=== PATIENT | male | born 1950 | race Hispanic/Latino ===

== ENCOUNTER 2017-12-18 10:23 | Observation (INO) | payer MEDICARE ==
[2017-12-17 11:52] LABS: BASOPHILS # (AUTO) 0.1 (0.0-0.1); EOSINOPHILS # (AUTO) 0.4 (0.0-0.4); EOSINOPHILS % 6.1 % (0.0-6.0); HEMATOCRIT 36.9 % (38.2-49.6); HEMOGLOBIN 12.3 g/dL (14.0-18.0); LYMPHOCYTES # (AUTO) 1.9 (1.0-3.2); LYMPHOCYTES % 26.2 % (18.0-39.1); MEAN CORPUSCULAR HEMOGLOBIN 28.5 pg (28-32); MEAN CORPUSCULAR HGB CONC 33.3 g/dL (31-35); MEAN CORPUSCULAR VOLUME 85.6 fL (81-99); MONOCYTES # (AUTO) 0.8 (0.2-0.8); MONOCYTES % 11.1 % (4.4-11.3); NEUTROPHILS % 55.5 % (38.7-80.0); PLATELET COUNT 272 x10e3/uL (140-360); RED BLOOD COUNT 4.31 x10e6/uL (4.3-5.7); RED CELL DISTRIBUTION WIDTH 13.9 % (11.7-14.4)
[2017-12-17 12:02] LABS: INR 1.18; PROTHROMBIN TIME 14.1 seconds (11.9-14.5)
[2017-12-17 12:11] LABS: ALANINE AMINOTRANSFERASE 37 IU/L (0-55); ALBUMIN 3.1 g/dL (3.5-5.0); ALBUMIN/GLOBULIN RATIO 0.9 (0.8-2.0); ALKALINE PHOSPHATASE 50 IU/L (40-150); ANION GAP 10.7 mmol/L (8-16); BLOOD UREA NITROGEN 15 mg/dL (7-26); BUN/CREATININE RATIO 14 (6-25); CALCIUM 8.8 mg/dL (8.4-10.2); CARBON DIOXIDE 31 mmol/L (22-29); CHLORIDE 102 mmol/L (98-107); CHOL/HDL RATIO 4.5 (3.9-4.7); CHOLESTEROL 118 MD/DL (0-199); CREATININE, SERUM 1.07 mg/dL (0.72-1.25); EST GLOMERULAR FILTRATION RATE > 60 ML/MIN (60-); GLUCOSE 125 mg/dL (74-118); HDL CHOLESTEROL 26 MG/DL (40-60); LDL CHOLESTEROL 38 MG/DL (60-130); POTASSIUM 3.7 mmol/L (3.5-5.1); SODIUM 140 mmol/L (136-145); TRIGLYCERIDES 272 MG/DL (0-149)
[~2017-12-18] VITALS: Ht 172.7 cm; Wt 106.6 kg
[2017-12-18] VITALS (10 sets, daily range): BP systolic 126–161; BP diastolic 68–85
[2017-12-18] MEDS ORDERED: SODIUM CHLORIDE 0.9% 1000ML 1,000 ML ONE (10:46)
[2017-12-18 11:01] LABS: BASOPHILS # (AUTO) 0.1 (0.0-0.1); BASOPHILS % 1.1 % (0.0-1.0); EOSINOPHILS # (AUTO) 0.4 (0.0-0.4); EOSINOPHILS % 6.4 % (0.0-6.0); HEMATOCRIT 38.4 % (38.2-49.6); HEMOGLOBIN 12.6 g/dL (14.0-18.0); LYMPHOCYTES # (AUTO) 1.7 (1.0-3.2); LYMPHOCYTES % 26.7 % (18.0-39.1); MEAN CORPUSCULAR HEMOGLOBIN 28.3 pg (28-32); MEAN CORPUSCULAR HGB CONC 32.8 g/dL (31-35); MEAN CORPUSCULAR VOLUME 86.3 fL (81-99); MONOCYTES # (AUTO) 0.8 (0.2-0.8); MONOCYTES % 11.6 % (4.4-11.3); NEUTROPHILS # (AUTO) 3.5 (2.1-6.9); NEUTROPHILS % 53.7 % (38.7-80.0); PLATELET COUNT 281 x10e3/uL (140-360); RED BLOOD COUNT 4.45 x10e6/uL (4.3-5.7); RED CELL DISTRIBUTION WIDTH 13.9 % (11.7-14.4)
[2017-12-18] MEDS ORDERED: LIDOCAINE HCL 2% LOCAL 20 ML VIAL ONE (11:03)
[2017-12-18] MEDS ORDERED: IOPAMIDOL 370 MG/ML 200 ML INFUS..BTL INJ ONE ×2 (11:03→11:04)
[2017-12-18] MEDS ORDERED: HEPARIN SOD/SOD CHLORIDE 2,000 ML ONE (11:03)
[2017-12-18 11:05] LABS: INR 1.17
[2017-12-18] MEDS ORDERED: LANTUS 3ML100 UNITS/ SQ (11:11)
[2017-12-18] MEDS ORDERED: LISINOPRIL10 MG PO (11:11)
[2017-12-18] MEDS ORDERED: LOVASTATIN40 MG PO (11:11)
[2017-12-18] MEDS ORDERED: AMLODIPINE BESYL5 MG PO (11:11)
[2017-12-18] MEDS ORDERED: GLIMEPIRIDE2 MG PO (11:11)
[2017-12-18] MEDS ORDERED: CARVEDILOL12.5 MG PO (11:11)
[2017-12-18] MEDS ORDERED: GABAPENTIN100 MG PO (11:11)
[2017-12-18] MEDS ORDERED: HUMALOG100 UNIT/1 SQ (11:11)
[2017-12-18] MEDS ORDERED: ASPIRIN81 MG PO (11:11)
[2017-12-18 11:18] LABS: ALANINE AMINOTRANSFERASE 35 IU/L (0-55); ALBUMIN 3.2 g/dL (3.5-5.0); ALBUMIN/GLOBULIN RATIO 0.9 (0.8-2.0); ALKALINE PHOSPHATASE 53 IU/L (40-150); ANION GAP 11.7 mmol/L (8-16); BLOOD UREA NITROGEN 15 mg/dL (7-26); BUN/CREATININE RATIO 13 (6-25); CALCIUM 8.6 mg/dL (8.4-10.2); CARBON DIOXIDE 30 mmol/L (22-29); CHLORIDE 101 mmol/L (98-107); CHOL/HDL RATIO 4.4 (3.9-4.7); CHOLESTEROL 123 MD/DL (0-199); CREATININE, SERUM 1.16 mg/dL (0.72-1.25); EST GLOMERULAR FILTRATION RATE > 60 ML/MIN (60-); GLUCOSE 83 mg/dL (74-118); HDL CHOLESTEROL 28 MG/DL (40-60); LDL CHOLESTEROL 51 MG/DL (60-130); POTASSIUM 3.7 mmol/L (3.5-5.1); SODIUM 139 mmol/L (136-145); TRIGLYCERIDES 219 MG/DL (0-149)
[2017-12-18] MEDS ORDERED: MIDAZOLAM HCL 2 MG/2 ML VIAL ONE (11:51)
[2017-12-18] MEDS ORDERED: FENTANYL CITRATE/PF 100MCG/2 ML INJ ONE (11:51)
[2017-12-18] MEDS ORDERED: BIVALIRUDIN 250 MG/VIAL IV ONE (12:08)
[2017-12-18] MEDS ORDERED: HEPARIN SOD (PORCINE) 1000 UNIT/ML 30ML ONE (12:08)
[2017-12-18] MEDS ORDERED: SODIUM CHLORIDE 0.9% 50ML 0 ML ONE (12:09)
[2017-12-18] MEDS ORDERED: NITROGLYCERIN/D5W 200 MCG/ML 250 ML ONE (12:09)
[2017-12-18] MEDS ORDERED: ASPIRIN 325 MG TAB ONE (12:47)
[2017-12-18] MEDS ORDERED: CLOPIDOGREL BISULFATE 75 MG TAB ONE (12:47)
[2017-12-18] MEDS: SODIUM CHLORIDE 0.9% 1000ML 1,000 ML IV SCH (15:15)
[2017-12-18] MEDS: INSULIN LISPRO 100 UNIT/1 ML 3ML VIAL SQ SCH (16:30)
[2017-12-18] MEDS ORDERED: INSULIN LISPRO 26 UNIT SQ SCH (16:30)
[2017-12-18] MEDS: GLIMEPIRIDE 2 MG TAB PO SCH (17:00)
[2017-12-18] MEDS: CARVEDILOL 12.5 MG TAB PO SCH (17:00)
[2017-12-18] MEDS: GABAPENTIN 100 MG CAP PO SCH (17:01)
[2017-12-18] MEDS ORDERED: INSULIN DETEMIR 100 UNIT/ML PEN SQ SCH (21:00)
[2017-12-18] MEDS ORDERED: SIMVASTATIN 40 MG TAB PO SCH (21:00)
[2017-12-18] MEDS ORDERED: SIMVASTATIN 20 MG TAB PO SCH (21:00)
[2017-12-18] MEDS ORDERED: LISINOPRIL 10 MG TAB PO SCH (21:00)
[2017-12-19] VITALS: BP 153/83
[2017-12-19] MEDS: SODIUM CHLORIDE 0.9% 1000ML 1,000 ML IV SCH (01:15)
[2017-12-19 04:00] VITALS: BP 170/90
[2017-12-19] MEDS: INSULIN LISPRO 100 UNIT/1 ML 3ML VIAL SQ SCH (07:30)
[2017-12-19 07:45] VITALS: BP 170/90
[2017-12-19 08:03] VITALS: BP 171/92
[2017-12-19] MEDS: GLIMEPIRIDE 2 MG TAB PO SCH (08:32)
[2017-12-19] MEDS: GABAPENTIN 100 MG CAP PO SCH (08:32)
[2017-12-19] MEDS: CARVEDILOL 12.5 MG TAB PO SCH (08:32)
[2017-12-19] MEDS ORDERED: PLAVIX75 MG PO (09:00)
[2017-12-19] MEDS ORDERED: ASPIRIN 81 MG CHEW TAB PO SCH ×2 (09:00)
[2017-12-19] MEDS ORDERED: LISINOPRIL 20 MG TAB PO SCH (09:00)
[2017-12-19] MEDS ORDERED: AMLODIPINE BESYLATE 5 MG TAB PO SCH (09:00)
[2017-12-19] MEDS ORDERED: CLOPIDOGREL BISULFATE 75 MG TAB PO SCH (09:00)
--- NOTE | 2017-12-20 13:43 | Operative Report ---
DATE OF PROCEDURE: December 18, 2017 PREOPERATIVE DIAGNOSIS: POSTOPERATIVE DIAGNOSIS: PROCEDURE INDICATIONS 1. Unstable angina. 2. Abnormal stress test. 3. History of previous known CAD. PROCEDURES PERFORMED 1. Left heart catheterization. 2. Selective coronary angiography times 2. 3. Left anterior descending drug-eluting stent percutaneous coronary intervention. ESTIMATED BLOOD LOSS: Less than 15 mL. PROCEDURE SUMMARY: After consent was obtained, patient was prepped and draped in a sterile fashion. The right femoral site was locally infiltrated with 2% lidocaine. Access was obtained using micropuncture kit, and a 6-Serbian sheath was placed. All catheters were railed into the proximal ascending aorta. A JL-4, JR-4 6-Serbian catheter were used to engage the LAD. A 4.0 guide catheter was used visualizing selective engagement of the left main and angiography in multiple views. A Runthrough wire was used to cross the areas of stenosis and tip placed in the apical portion of the LAD. Heparin for ACT over 250, aspirin and Plavix were administered. Predilatation was performed through areas of stenosis with an NC 2.5 x 8. This was followed by Synergy 2.25 x 20-mm drug-eluting stent deployed to the distal LAD and a more proximal separate lesion was treated with the Synergy 2.25 x 16 drug-eluting stent. Final angiography revealed LEANDRO-3 flow, no dissections, no perforations, less than 10% residual stenosis. COMPLICATIONS: None. ESTIMATED BLOOD LOSS: Less than 15 mL. FINDINGS 1. Left main with severe calcifications 20% focal stenosis gives rise to large-caliber LAD, a small-caliber ramus intermedius, and a large-caliber circumflex. 2. The LAD is calcified heavily in the proximal portion with less than 30% stenosis. Mid portion with 30% focal stenosis. Post intervention of this lesion, there was less than 10% residual stenosis. The distal apical LAD reveals additional 30% area of stenosis. Postintervention, there was less than 10% residual stenosis. 3. The ramus intermedius is diffusely diseased 50%, small in caliber overall. 4. The circumflex has diffuse area of 30% of stenosis, gives 2 obtuse marginal and 2 left posterolateral branches. Collaterals from left to right are noted to give rise to filling of the RPLV and RPDA. 5. Right coronary artery is chronically occluded 100% from proximal to distal. CONCLUSION: Successful revascularization of the distal left anterior descending using drug-eluting stents. RECOMMENDATIONS 1. Aspirin and Plavix. 2. AFib noted. Eliquis prescription provided. Patient advised to initiate after 4 days if no bleeding arises. Job#: [id number] CQ MTDD
== END 2017-12-19 09:35 | disposition home or self-care (01) ==
LOC: CATH LAB 10:23 → MED/SURG 15:42
PROVIDERS: ADMIT Internal Medicine Cardiovascular Disease; ATTEND Internal Medicine Cardiovascular Disease
DX: I25.110 Atherosclerotic heart disease of native coronary artery with unstable angina pectoris (principal); R94.39 Abnormal result of other cardiovascular function study; I10 Essential (primary) hypertension; E66.9 Obesity, unspecified; E78.5 Hyperlipidemia, unspecified; E11.9 Type 2 diabetes mellitus without complications; N52.9 Male erectile dysfunction, unspecified; Z79.4 Long term (current) use of insulin; Z79.82 Long term (current) use of aspirin; Z68.35 Body mass index [BMI] 35.0-35.9, adult
CPT/HCPCS: 93458; C9607; 36140; 36415; 77002; 80053; 80061; 82948; 85025; 85610; 92920; 93005; C1769; C9600; G0378; J0583; J1644; J2001; J2250; J7030; Q9967